=== PATIENT | male | born 1990 | race Caucasian/White ===

== ENCOUNTER 2019-10-15 21:51 | Emergency (ER) | payer MEDICAID, OTHER ==
[2019-10-15 22:02] VITALS: BP 154/89
[2019-10-15] MEDS ORDERED: AZITHROMYCIN 250 MG TABLET PO STA (22:11)
[2019-10-15] MEDS ORDERED: cefTRIAXone 250 MG VIAL IM STA (22:11)
[2019-10-15] MEDS ORDERED: LIDOCAINE 1% 2 ML VIAL MC ONE (22:11)
--- NOTE | 2019-10-15 22:13 | ED Physician Documentation ---
PD HPI MALE - Stated complaint Stated Complaint: MALE - Chief complaint Chief Complaint: General - History obtained from History obtained from: Patient - History of Present Illness Timing - onset: Other (2 days of some urethral discharge with mild burning. He has had several sexual partners recently. No rashes or lesions. No weight loss.) Review of Systems Constitutional: denies: Fever, Chills, Myalgias GI: denies: Abdominal Pain, Nausea, Vomiting PD PAST MEDICAL HISTORY - Past Medical History Cardiovascular: None Respiratory: None Endocrine/Autoimmune: None GI: None : None HEENT: None Psych: None Musculoskeletal: None Derm: None - Past Surgical History Past Surgical History: Yes General: Appendectomy - Present Medications Home Medications: Ambulatory Orders Medication Instructions Recorded Confirmed No Known Home Medications 10/15/19 10/15/19 - Allergies Allergies/Adverse Reactions: Allergies Allergy/AdvReac Type Severity Reaction Status Date / Time No Known Drug Allergies Allergy Verified 10/15/19 22:04 - Social History Does the pt smoke?: Yes Smoking Status: Current every day smoker Does the pt drink ETOH?: Yes Does the pt have substance abuse?: No - Immunizations Immunizations are current?: Yes - POLST Patient has POLST: No PD ED PE NORMAL - Vitals Vital signs reviewed: Yes - General General: Alert and oriented X 3, No acute distress - Abdomen Abdomen: Soft, Non tender - Male Male : Other (He does have visible urethritis at the tip, no other rashes or lymphadenopathy) - Neuro Neuro: Alert and oriented X 3, Normal speech Results - Vitals Vitals: Vital Signs - 24 hr 10/15/19 22:00 Temperature 36.6 C Heart Rate 95 Respiratory 16 Rate Blood Pressure 154/89 H O2 Saturation 100 Oxygen O2 Source Room air PD MEDICAL DECISION MAKING - ED course ED course: 29-year-old gentleman presents with urethritis, cultures were sent and he is administered Rocephin 250 mg IM and a azithromycin 1 g p.o. Departure - Departure Disposition: 01 Home, Self Care Clinical Impression: Urethritis Condition: Good Record reviewed to determine appropriate education?: Yes Instructions: ED STD Male Treated Follow-Up: [facility] [Provider Group] [facility] [Provider Group] Comments: We are testing in today for gonorrhea and chlamydia, however if they come back positive we will call you but you are already completely treated for these. You should follow-up with a primary care physician for further evaluation and treatment, a couple in [place] are listed on this form.
== END 2019-10-15 22:23 | disposition home or self-care (01) ==
LOC: ED 21:51
DX: N34.2 Other urethritis (principal); F17.200 Nicotine dependence, unspecified, uncomplicated
CPT/HCPCS: 96372; 99283; A9270; 87491; 87591; 87661

== ENCOUNTER 2020-06-17 19:04 | Emergency (ER) | payer MEDICAID ==
[2020-06-17 19:27] VITALS: BP 131/71
[2020-06-17 19:43] LABS: RAPID STREP SCREEN Negative (Negative)
== END 2020-06-18 00:11 | disposition left against medical advice (07) ==
LOC: ED 19:04
DX: Z53.21 Procedure and treatment not carried out due to patient leaving prior to being seen by health care provider (principal)
CPT/HCPCS: 87070; 87430; 99283